=== PATIENT | female | born 1950 | race African-American/Black ===

== ENCOUNTER 2018-09-02 09:36 | Outpatient (CLI) | payer MEDICARE ==
--- NOTE | 2018-09-02 21:19 | RAD ---
RIGHT HIP TWO VIEWS: 09/02/18 No fracture, dislocation, or joint space narrowing was seen. Arthritic changes are note prominent at all. Arteriosclerotic change is seen in the femoral arteries and iliac arteries. Large densely calcif ied uterine fibroids are apparent. The adjacent pubic ring appears intact. IMPRESSION: No cause for pain seen. POS: HOME
== END 2018-09-02 09:37 | disposition home or self-care (01) ==
LOC: EDBD 09:36 → BURRAD 09:36
PROVIDERS: ATTEND Physician Assistant
DX: G89.29 Other chronic pain (principal)

== ENCOUNTER 2023-03-14 13:57 | Emergency (ER) | payer MEDICARE, OTHER ==
[2023-03-14] MEDS ORDERED: NEOMYCIN-POLYMYXIN-HC EAR SUSP 200 DROP/10 ML BOT ONE (14:12)
== END 2023-03-14 14:22 | disposition home or self-care (01) ==
LOC: BURERS 13:57
DX: H60.502 Unspecified acute noninfective otitis externa, left ear (principal); I10 Essential (primary) hypertension; E78.00 Pure hypercholesterolemia, unspecified; F17.220 Nicotine dependence, chewing tobacco, uncomplicated
CPT/HCPCS: 99282